=== PATIENT | female | born 1955 | race Caucasian/White ===

== ENCOUNTER 2017-04-04 08:53 | Day surgery (SDC) | payer OTHER ==
[~2017-04-04] VITALS: Ht 154.9 cm; Wt 100.0 kg
[~2017-04-04 08:53] MED LIST: ATOR40TA49 PO; FENO50TA PO; METO50TA11; SAXA2.5T OR
[2017-04-04 09:08] VITALS: BP 144/90; PULSE 58; RESP 18; TEMP 98.5; O2SAT 92
[2017-04-04] MEDS ORDERED: TOPR50TA PO (09:10)
[2017-04-04] MEDS ORDERED: ATOR40TA16 PO (09:10)
[2017-04-04] MEDS ORDERED: ATOR10TA15 PO (09:10)
[2017-04-04] MEDS ORDERED: JANU50TA4 PO (09:10)
[2017-04-04] MEDS ORDERED: SODIUM CHLOR 0.9% 1000 ML INJ 1,000 ML IV SCH (09:15)
--- NOTE | 2017-04-04 13:24 | RADRPT ---
EXAM DATE/TIME: 04/04/2017 12:51 [facility] COMPARISON: No previous studies available for comparison. INDICATIONS : Endometrial cancer. ORAL CONTRAST: No oral contrast ingested. RADIATION DOSE: 30.31 CTDIvol (mGy) ; Patient body habitus MEDICAL HISTORY : Diabetes mellitus type 2. Hypertension. Uterine cancer, endometrial cancer. SURGICAL HISTORY : Hysterectomy. ENCOUNTER: Initial ACUITY: 1 day PAIN SCALE: 0/10 LOCATION: pelvis TECHNIQUE: Volumetric scanning of the pelvis was performed. Using automated exposure control and adjustment of the mA and/or kV according to patient size, radiation dose was kept as low as reasonably achievable t o obtain optimal diagnostic quality images. DICOM format image data is available electronically for review and comparison. FINDINGS: BOWEL/MESENTERY: The visualized small and large bowel demonstrate no acute abnormality. Mild disease of the sigmoid wi thout diverticulitis. The omental stranding and 1.4 cm lymph node identified left para-midline in the lower abdomen/upper pelvis appears to show some interval improvement. The node now measures 1.15 cm and the degree of stranding has diminished. There is still some regional free fluid extending into th e deep pelvis. BLADDER: There is no wall thickening or mass. RETROPERITONEUM: There is no aneurysm or lymphadenopathy. REPRODUCTIVE: Status post hysterectomy with stable prominence of the vaginal cuff. INGUINAL: There is no lymphadenopathy or hernia. MUSCULOSKELETAL: Within normal limits for patient age. CONCLUSION: 1. Stranding in the omentum with a regional borderline prominent lymph node left paramidline in the l ower abdomen/upper pelvis actually appears to be slightly improved when compared to the outside study . The lymph node previously measured 1.3-1.4 cm and now measures 1.15 cm. Findings are encouraging fo r benignity but I would recommend a followup CT scan of the pelvis with IV contrast in 3 months to en sure continued improvement/stability. 2. There is still some free fluid in the regional bowel loops extending into the deep pelvis. This ca n be reassessed on the followup exam. Randy Sanchez MD on April 04, 2017 at 13:18 Board Certified Radiologist. This report was verified electronically.
== END 2017-04-04 13:00 | disposition home or self-care (01) ==
LOC: HRAD 08:53 → HRIP 08:54 → HRAD 13:00
PROVIDERS: ATTEND Nurse Practitioner Family
DX: C54.1 Malignant neoplasm of endometrium (principal); E11.9 Type 2 diabetes mellitus without complications; I10 Essential (primary) hypertension; E78.5 Hyperlipidemia, unspecified
CPT/HCPCS: 72192; C1729; C1769

== ENCOUNTER → 2017-08-25 | Day surgery (SDC) | payer OTHER ==
[~2017-08-25] VITALS: Ht 154.9 cm; Wt 96.4 kg
[~2017-08-25] MED LIST changes: +*RESP: ALBUTEROL 2.5 MG/3 ML NEB (PRN) PERIprocedural Use ONLY NEB ONE; +ACETAMINOPHEN 1000 MG/100 ML 100 ML IV ONE; +ARTIFICIAL TEARS OPTH OINT 3.5 APPLIC/3.5 GM TUBO ONE; +ATOR40TA16 PO; -ATOR40TA49 PO; +CHLORHEXIDINE GLUCONATE 2 % 1 PACK (2 CLOTHS) TOPICAL PRN; +DEXAMETHASONE SOD PHOS 4 MG/ML VIAL IV ONE; +DO NOT ADM ANY ANTICOAGULANT DRUGS PRN; -FENO50TA PO; +GLYCOPYRROLATE 1 MG/5 ML SYRINGE IV PUSH ONE; +HEPARIN SODIUM - SQ 10,000 UNITS/ML VIAL SQ SCH; +JANU50TA4 PO; +KETOROLAC TROMETHAMINE 30 MG/ML (IVP) VIAL IV PUSH ONE; +LACTATED RINGER'S 1000 ML IV PRN; +LIDOCAINE 1%/EPINEPHrine 1:100,000 SOLN 20 ML VIAL ONE; +LIDOCAINE HCL 1% PF 5 ML SYRINGE OTHER ONE; -METO50TA11; +METOPROLOL TARTRATE 25 MG TAB PO PRN; +MIDAZOLAM HCL 2 MG/2 ML VIAL IV ONE; +NEOSTIGMINE 5 MG/5 ML SYRINGE IV PUSH ONE; +NORMOSOL R INJ 1,000 ML IV ONE; +ONDANSETRON HCL 4 MG/2 ML VIAL IV ONE; +PHENYLEPH/NS 1000 MCG/10 ML SYR IV ONE; +PHENYLEPHRINE HCL 10 MG/ML VIAL IV ONE; +POVIDONE IODINE 5% (ANTISEPSIS KIT) 4 APPLICATIONS EACH NARE PRN; +PROPOFOL 200 MG/20 ML AMP IV ONE; +ROCURONIUM INJ 50 MG/5 ML SYRINGE IV PUSH ONE; -SAXA2.5T OR; +SODIUM CHLORID 0.9% 500 ML IV PRN; +SODIUM CHLORIDE 0.9% 20 ML VIAL IV ONE; +SUGAMMADEX SODIUM 200 MG/2 ML VIAL IV PUSH ONE; +TOPR50TA PO; +VECURONIUM BROMIDE 20 MG VIAL IV ONE; +ceFAZolin 2 GM PREMIX 50 ML IV SCH; +ePHEDrine/NS 25 MG/5 ML SYRINGE IV ONE; +oxyCODONE/ACETAMINOPHEN 5 MG/325 MG TAB PO PRN
[2017-08-25 06:55] LABS: AUTOMATED NEUTROPHIL # 5.8 TH/MM3 (1.8-7.7); BASOPHIL % 0.2 % (0.0-2.0); EOSINOPHIL # 0.1 TH/MM3 (0-0.4); EOSINOPHIL % 1.5 % (0.0-4.0); HEMATOCRIT 37.3 % (35.0-46.0); HEMOGLOBIN 12.4 GM/DL (11.6-15.3); LYMPH % 9.5 % (9.0-44.0); LYMPHOCYTE # 0.7 TH/MM3 (1.0-4.8); MEAN CELL VOLUME 86.7 FL (80.0-100.0); MEAN CORPUSCULAR HEMOGLOBIN 28.7 PG (27.0-34.0); MEAN CORPUSCULAR HGB CONC 33.1 % (32.0-36.0); MEAN PLATELET VOLUME 8.7 FL (7.0-11.0); MONO % 7.6 % (0.0-8.0); MONOCYTE # 0.5 TH/MM3 (0-0.9); NEUT % 81.2 % (16.0-70.0); PLATELET COUNT 220 TH/MM3 (150-450); RED CELL DISTRIBUTION WIDTH 17.3 % (11.6-17.2); WHITE BLOOD COUNT 7.2 TH/MM3 (4.0-11.0)
[2017-08-25 06:57] LABS: INTERNATIONAL NORMALIZED RATIO 1.1 RATIO; PROTHROMBIN TIME - PATIENT 10.8 SEC (9.8-11.6)
[2017-08-25 07:06] LABS: ALKALINE PHOSPHATASE 71 U/L (45-117); TOTAL BILIRUBIN ADULT 0.9 MG/DL (0.2-1.0); TOTAL PROTEIN 7.2 GM/DL (6.4-8.2)
[2017-08-25 07:07] LABS: ALBUMIN 3.2 GM/DL (3.4-5.0); ALT (GPT) 20 U/L (10-53); AST (GOT) 27 U/L (15-37); BICARBONATE 26.9 MEQ/L (21.0-32.0); BLOOD UREA NITROGEN 12 MG/DL (7-18); CALCIUM 9.3 MG/DL (8.5-10.1); CHLORIDE 106 MEQ/L (98-107); CREATININE 0.72 MG/DL (0.50-1.00); GLOMERULAR FILTRATION RATE 82 ML/MIN (>89); GLUCOSE,RANDOM 87 MG/DL (74-106); SODIUM (NA) 140 MEQ/L (136-145)
[2017-08-25 13:55] VITALS: BP 113/51; PULSE 80; RESP 20; TEMP 98; O2SAT 94
--- NOTE | 2017-08-25 18:34 | MP ---
cc: CHERI LENTZ MD, JULIE D. MD LARRAZABAL, CHRISTOPHER, DR DATE OF SURGERY: 08/25/2017 PREOPERATIVE DIAGNOSIS: History of stage II endometrial cancer. Abnormal CAT scan showing ascites, intraperitoneal nodules. POSTOPERATIVE DIAGNOSIS: History of stage II endometrial cancer. 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 HISTORY: A 61 year-old female who in 2012 underwent surgical staging of the laparoscopic robotics. Was found to have a stage II endometrial cancer, lymph nodes were negative, but there was cervical extension, postoperatively she underwent brachy therapy and has been followed since that time without evidence of disease. Recent imaging showed ascites, nodules throughout the peritoneal cavity, prominent nodules in both the right and left diaphragm peritoneum. She was counseled regarding these findings and recommendations were made for either CT directed biopsy or laparoscopic evaluation. She was in favor laparoscopic evaluation. The objectives to be at tissue diagnosis as if findings were consistent with recurrent disease chemotherapy would be recommended. She is seen again in the preop holding area where the findings are again reviewed. CT scan findings as noted above. Also with a questionable liver, questionable liver lesion in addition to the diaphragm peritoneal nodules adjacent to the right and left lobes of the liver intraperitoneal carcinomatosis, omental thickening and ascites all noted but were suspicious for recurrent disease. We clarified the objectives for tissue diagnosis primarily likely not best amenable to surgical resection as systemic chemotherapy would be recommended and this is again discussed. Questions were answered. She expressed good understanding and states that if she is doing well she would like to be discharged to home later today after the procedure. FINDINGS Upon entry into the peritoneal cavity. Visibility was initially somewhat limited due to a large volume of bloody ascites and after the ascites was drained, had better visibility, confirmed diffuse intraperitoneal carcinomatosis. There were small miliary implants, essentially on all visceral and parietal peritoneal surfaces. There was some larger nodules on the peritoneum ranging 5-10 mm's. The omentum was thickened. The distal omentum replaced with tumor adherent to the anterior abdominal wall third tumor implants on the sigmoid colon. The abdomen and the diaphragm peritoneum had each side. There was a large tumor nodule approximately 2 cm in diameter. The CT finding of a posterior liver lesion could not be visualized laparoscopically. Frozen section analysis. The first frozen section biopsy was nondiagnostic. Subsequent tissue was sent down was clearly adenocarcinoma and on preliminary and favored the appearance of an endometrial adenocarcinoma. She does have the top procedure was laparoscopic resection of bilateral diaphragm peritoneal masses intraperitoneal biopsies, lysis of adhesions and drainage of ascites. 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 PROCEDURE She was taken to the operating room placed in dorsal lithotomy position after general endotracheal anesthesia was administered time-out was undertaken, she was identified by sight recognition and hospital ID andrew and the proposed procedure was reviewed and confirmed. She was carefully positioned in padded Robert stirrups. Her arms were padded and secured to the sides. She was further secured to the table with egg crate padding tape in across chest over the shoulder fashion. All sites noted be properly aligned with no malalignments or pressure points. Prepped and draped sterile fashion. Gr catheter placed in the bladder confirmed that an orogastric tube was in the stomach on suction. 5 mm cannula was introduced into the left upper quadrant with manual elevation of the abdominal wall and direct laparoscopic visualization using a previous laparoscopic incision. An atraumatic entry was confirmed under laparoscopic guidance, now a midline supraumbilical incision was made through a prior laparoscopic incision and the findings were as described above limited visibility initially due to the extensive ascites. 5200 cc of bloody ascites were removed and the extent of the tumor became more visible as described above. Laparoscopic biopsy resection of the peritoneal nodule along the right diaphragm peritoneum was removed and sent for frozen section analysis which returned nondiagnostic. While awaiting those results the tumor nodules arising from the right diaphragm peritoneum was excised with sharp dissection and then the specimen pieces were removed laparoscopically and the base of the mass was cauterized with bipolar cautery. Some of this tissue was sent for frozen section analysis. Attention was directed toward the left side with the tumor mass arising from the left diaphragm peritoneum was excised sharply the tissue was removed and the base of the excision was cauterized with bipolar cautery. Sites were hemostatic. The anatomy was surveyed, adhesions were lysed and closed adjacent to the omentum and a second frozen section returned showing adenocarcinoma favoring endometrioid suggestive of a recurrence of endometrial cancer. The Anatomy was surveyed further, and it was felt that there would be limited value to any efforts at extensive surgery as clearly chemotherapy will be the cornerstone of the management of this problem. Surgicel was placed over the diaphragm peritoneum where the tumor nodules had been resected. The sites were hemostatic and it was felt that all reasonable surgical objectives had been completed. Accordingly the laparoscopic instruments were removed. The carbon dioxide gas was removed and the peritoneal cavity. 3-0 Vicryl subcutaneous, 3-0 Vicryl subcuticular were used to close the skin incisions. Steri-Strips were placed over these incisions. Preliminary and then final counts were correct. She was returned to dorsal supine position and was pending reversal of anesthesia when I left the operating room to precede her to the Post Anesthesia Care Unit. MD CHINO Bahena/sathya /10:35 AM /6:18 PM
== END | disposition home or self-care (01) ==
LOC: HSDC 05:27
PROVIDERS: ATTEND Obstetrics & Gynecology Gynecologic Oncology
DX: C78.6 Secondary malignant neoplasm of retroperitoneum and peritoneum (principal); C54.1 Malignant neoplasm of endometrium; R18.8 Other ascites; I10 Essential (primary) hypertension; E11.9 Type 2 diabetes mellitus without complications; Z79.84 Long term (current) use of oral hypoglycemic drugs
CPT/HCPCS: 00840; 49320; 58960; 80053; 85025; 85610; 85730; 86850; 86900; 86901; 88112; 88305; 88331; 94150; J0131; J0690; J1100; J1644; J1885; J2250; J2370; J2405; J2710; J3010; J7120; J7613

== ENCOUNTER 2017-09-06 06:42 | Day surgery (SDC) | payer OTHER ==
[~2017-09-06] VITALS: Ht 154.9 cm; Wt 100.0 kg
[~2017-09-06 06:42] MED LIST changes: -*RESP: ALBUTEROL 2.5 MG/3 ML NEB (PRN) PERIprocedural Use ONLY NEB ONE; -ACETAMINOPHEN 1000 MG/100 ML 100 ML IV ONE; -ARTIFICIAL TEARS OPTH OINT 3.5 APPLIC/3.5 GM TUBO ONE; -CHLORHEXIDINE GLUCONATE 2 % 1 PACK (2 CLOTHS) TOPICAL PRN; -DEXAMETHASONE SOD PHOS 4 MG/ML VIAL IV ONE; -DO NOT ADM ANY ANTICOAGULANT DRUGS PRN; -GLYCOPYRROLATE 1 MG/5 ML SYRINGE IV PUSH ONE; -HEPARIN SODIUM - SQ 10,000 UNITS/ML VIAL SQ SCH; -KETOROLAC TROMETHAMINE 30 MG/ML (IVP) VIAL IV PUSH ONE; -LACTATED RINGER'S 1000 ML IV PRN; -LIDOCAINE 1%/EPINEPHrine 1:100,000 SOLN 20 ML VIAL ONE; -LIDOCAINE HCL 1% PF 5 ML SYRINGE OTHER ONE; -METOPROLOL TARTRATE 25 MG TAB PO PRN; -MIDAZOLAM HCL 2 MG/2 ML VIAL IV ONE; -NEOSTIGMINE 5 MG/5 ML SYRINGE IV PUSH ONE; -NORMOSOL R INJ 1,000 ML IV ONE; -ONDANSETRON HCL 4 MG/2 ML VIAL IV ONE; -PHENYLEPH/NS 1000 MCG/10 ML SYR IV ONE; -PHENYLEPHRINE HCL 10 MG/ML VIAL IV ONE; -POVIDONE IODINE 5% (ANTISEPSIS KIT) 4 APPLICATIONS EACH NARE PRN; -PROPOFOL 200 MG/20 ML AMP IV ONE; -ROCURONIUM INJ 50 MG/5 ML SYRINGE IV PUSH ONE; -SODIUM CHLORID 0.9% 500 ML IV PRN; -SODIUM CHLORIDE 0.9% 20 ML VIAL IV ONE; -SUGAMMADEX SODIUM 200 MG/2 ML VIAL IV PUSH ONE; -VECURONIUM BROMIDE 20 MG VIAL IV ONE; -ceFAZolin 2 GM PREMIX 50 ML IV SCH; -ePHEDrine/NS 25 MG/5 ML SYRINGE IV ONE; -oxyCODONE/ACETAMINOPHEN 5 MG/325 MG TAB PO PRN
[2017-09-06 06:59] VITALS: BP 143/81; PULSE 64; RESP 20; TEMP 97.5; O2SAT 97
[2017-09-06] MEDS ORDERED: VANCOMYCIN 1000 MG/NS 250 ML - implanted port/tunneled catheter IV SCH ×2 (07:00)
[2017-09-06] MEDS ORDERED: SODIUM CHLORIDE 0.9% 1000 ML IV SCH (07:00)
[2017-09-06] MEDS ORDERED: CHLORHEXIDINE GLUCONATE 2 % 1 PACK (2 CLOTHS) TOPICAL SCH (07:00)
[2017-09-06] MEDS ORDERED: POVIDONE IODINE 5% (ANTISEPSIS KIT) 4 APPLICATIONS EACH NARE SCH (07:00)
[2017-09-06] MEDS: ceFAZolin 2 GM PREMIX 50 ML - implanted port/tunneled catheter insertion IV SCH (07:28)
[2017-09-06] MEDS ORDERED: MIDAZOLAM HCL 5 MG/5 ML VIAL ONE (07:47)
[2017-09-06] MEDS ORDERED: LIDOCAINE 1%/EPINEPHrine 1:100,000 SOLN 20 ML VIAL ONE (08:00)
--- NOTE | 2017-09-06 08:37 | PD.RAD ---
Post Procedure Progress Note Pre Procedure Diagnosis: (1) Endometrial ca Post Procedure Diagnosis: (1) Endometrial ca Procedure Date: Sep 06, 2017 Supervising Radiologist: Fabian Posey Proceduralist/Assist: RT Queenie(R) Anesthesia: Local, Conscious Sedation Plan of Activity Patient to Unit: ROPU Patient Condition: Good See PACS Report for procedural detail/treatment Central Venous Access Device Procedure 1 Right Internal Jugular Infusaport Placement single lumen Indonesian: 8 Fabian Posey MD Sep 06, 2017 08:37
[2017-09-06 08:45] VITALS: BP 132/53; PULSE 69; RESP 20; TEMP 97.5; O2SAT 94
[2017-09-06] MEDS ORDERED: SODIUM CHLORIDE 0.9% FLUSH 10 ML FLUSH IVF PRN (08:45)
--- NOTE | 2017-09-06 08:52 | RADRPT ---
EXAM DATE/TIME: 09/06/2017 08:53 [facility] COMPARISON: No previous studies available for comparison. INDICATIONS : Patient recently diagnosed with uterine ca.Will need chemo therapy. MEDICAL HISTORY : 1.DM 2. HTN 3. Uterine ca 4. Ascities SURGICAL HISTORY : 1. teeth extraction 2. D&C 3. hysterectomy ENCOUNTER: Initial ACUITY: 1 week PAIN SCORE: 0/10 FLUORO TIME: 0.7 minutes IMAGE SERIES: 0 SEDATION TIME: 30 minutes ACCESS: Right internal jugular vein SEDATION: 1.) 2 mg midazolam (Versed) IV 2.) 150 mcg fentanyl (Sublimaze) IV Prophylactic antibiotics were administered with appropriate pre-procedure timing. Vancomycin within 2 hours of procedure, Ancef (or alternative) within 1 hour of procedure. DEVICE: 1. 8 Ethiopian single lumen Smart port angiodynamics PROCEDURE : 1. Continuous pulse oximetry and EKG monitoring. 2. Intravenous conscious sedation. 3. Ultrasound guidance for venous access. 4. Fluoroscopic guided implantable central venous port placement. The patient was placed supine. The neck was prepped in sterile fashion. Full sterile technique was u sed, including cap, mask, sterile gloves and gown, and a large sterile sheet. Hand hygiene and 2% ch lorhexidine Betadine was utilized per protocol for cutaneous antisepsis with appropriate dry time for site. Sterile gel and sterile probe cover were utilized for ultrasound guidance. The skin and sub cutaneous tissues were infiltrated with local anesthetic solution. Under direct ultrasound guidance, central venous access was accomplished in the targeted vessel. The ultrasound images depicting access guidance were stored and saved to PACS for permanent record. A s ubcutaneous pocket was created using blunt dissection. The port was introduced to the pocket. The c atheter tubing was fed through a subcutaneous tunnel to the venotomy site. The catheter tubing was c ut to a suitable length and then was introduced through a valved Peel-Away sheath and positioned with catheter tubing tip at the cavo-atrial junction level. The pocket incision was closed with subcutic ular Vicryl suture. Steri-Strips were applied. The port was flushed and locked with heparin solutio n per protocol. Sterile dressing was applied to the site. The patient tolerated the procedure well. Conscious sedation was performed with the prescribed dosages and duration as above in the presence of an independent trained radiology nurse to assist in the monitoring of the patient. EKG and oximetry remained stable throughout the procedure. The patient tolerated the procedure well and there were no complications. The patient was sent to post anesthesia recovery in stable condition. CONCLUSION: Uncomplicated ultrasound and fluoroscopic guided implanted central venous port catheter placement as described in detail above. An 8 Ethiopian Power port was placed. Fabian Posey MD on September 06, 2017 at 8:50 Board Certified Radiologist. This report was verified electronically.
[2017-09-06 09:00] VITALS: BP 135/55; PULSE 65; RESP 20; O2SAT 92
[2017-09-06 09:30] VITALS: BP 128/58; PULSE 63; RESP 20; O2SAT 93
[2017-09-06 10:00] VITALS: BP 109/47; PULSE 64; RESP 20; O2SAT 93
== END 2017-09-06 10:31 | disposition home or self-care (01) ==
LOC: HRIP 06:42 → HROP 06:42
PROVIDERS: ATTEND Obstetrics & Gynecology Gynecologic Oncology
DX: C54.1 Malignant neoplasm of endometrium (principal); E11.9 Type 2 diabetes mellitus without complications; I10 Essential (primary) hypertension; R18.8 Other ascites; E78.5 Hyperlipidemia, unspecified
CPT/HCPCS: 36561; 76937; 77001; 99152; 99153; C1788; J0690; J1642; J2250; J3010; J3370; J7030; J7050